=== PATIENT | male | born 1935 | race Caucasian/White ===

== ENCOUNTER → 2016-09-29 | Outpatient (CLI) | payer OTHER | LOC: RAD 13:36 | DX: J44.9 Chronic obstructive pulmonary disease, unspecified (principal) ==

== ENCOUNTER 2017-03-22 10:55 | Inpatient (IN) | payer OTHER ==
[~2017-03-22] VITALS: Ht 177.8 cm; Wt 71.0 kg
--- NOTE | ~2017-03-22 | EKG ---
[place] [address] [facility] [place] [address] ELECTROCARDIOGRAM REPORT Name: ÁNGEL BARRETO Room #: 417-I ADM IN M.R.#: [id number] Admission: 03/22/17 Attend Phys: Preston Carrillo MD Discharge: Date of : 37 Report #: [id number] THIS REPORT FOR: //name// [facility] Test Date: 2017-03-22 Test Time: 13:57:28 Pat Name: ÁNGEL BARRETO Department: Room: 417 Gender: M Process Consultant: Michelle YOU : 1935 Requested By: Preston Carrillo Order Number: [id number] MD: Andres Roberson Measurements Intervals [place] Rate: 62 P: 0 ND: 180 QRS: -66 QRSD: 140 T: 116 QT: 405 QTc: 412 Interpretive Statements Ventricular-paced rhythm No further analysis attempted due to paced rhythm Compared to ECG 02/28/2007 14:12:00 Ventricular pacing now present Electronically Signed On 03-22-2017 17:19:50 [employer] by Andres Roberson [email or web address] <ELECTRONICALLY SIGNED> By: Andres Roberson MD, [facility] 03/22/17 1719 [id number] Andres Roberson MD, FAC /EPI
--- NOTE | ~2017-03-22 | H ---
[facility] [place] [address] HISTORY AND PHYSICAL Name: ÁNGEL BARRETO Room #: 417-I [facility] IN M.R.#: [id number] Admission: 03/22/17 Attend Phys: Preston Carrillo MD Discharge: 03/26/17 Date of : 37 Report #: [id number] THIS REPORT FOR: //name// CC: VICENTE physician/PCP Preston Carrillo DATE OF SERVICE: 03/22/2017 CHIEF COMPLAINT: Shortness of breath. HISTORY OF PRESENT ILLNESS: The patient is a pleasant 81-year-old male who I have been following in the office for the last 10 years, followed by our group for more than that for underlying COPD and chronic hypoxemia, brought in today by his for reevaluation. The patient notes increasing shortness of breath over the last about 2 weeks and increasing cough productive of green sputum, recently started nebulized tobramycin, was hospitalized in [facility] in December for similar complaints. No fever or chills, but has some increasing dyspnea and wheeze. Unable to tolerate even minimal activity without significant dyspnea. No nausea, vomiting or abdominal pain noted. No other influenza type symptoms. ALLERGIES: INCLUDE MORPHINE, ASPIRIN, IBUPROFEN, NYSTATIN. PAST MEDICAL HISTORY: 1. Severe COPD. 2. Coronary artery disease. 3. Chronic hypoxemic respiratory failure. 4. Atrial fibrillation. 5. Prior cerebrovascular accident. 6. Hypertension. 7. Prior pacemaker placement. 8. Legal blindness. OUTPATIENT MEDICATIONS: Include supplemental oxygen. Tudorza twice daily, albuterol nebulized p.r.n., atorvastatin 40 mg daily, azithromycin 250 every Wednesday, Wednesday, Wednesday. Pulmicort nebulized twice daily, digoxin 0.125 daily, Lasix 40 mg daily, DuoNebs p.r.n., isosorbide mononitrate 30 mg daily, metoprolol 50 mg daily, prednisone 5 mg daily, verapamil 240 mg daily. SOCIAL HISTORY: Ex-smoker, quitting in 1977. Occasional alcohol consumption. FAMILY HISTORY: Significant for mother who had a brain aneurysm and pacemaker and at 87. Father had COPD and at 80. REVIEW OF SYSTEMS: CONSTITUTIONAL: No fevers, chills or sweats, just some general malaise. [facility] [address] [place] [address] HISTORY AND PHYSICAL Name: ÁNGEL BARRETO Room #: 417-I [facility] IN M.R.#: [id number] Admission: 03/22/17 Attend Phys: Preston Carrillo MD Discharge: 03/26/17 Date of : 37 Report #: [id number] ENT: Some difficulty hearing, upper respiratory congestion, occasional hoarseness. CARDIOVASCULAR: Known coronary artery disease, but no chest pains or palpitations. GASTROINTESTINAL: Some occasional dysphagia. No nausea, vomiting, diarrhea, constipation or abdominal pain. GENITOURINARY: No dysuria, no frequency. INTEGUMENT: Denies any new rash. MUSCULOSKELETAL: No new joint pains. Some lower extremity edema. PHYSICAL EXAMINATION: VITAL SIGNS: He is afebrile last with a temperature of 97.6, pulse 68, respiratory rate of 16, blood pressure 119/70, weight is about 153 pounds, oxygen saturation 98% on 4 liters. GENERAL: This is an elderly male, mild respiratory distress. HEENT: Clear oropharynx. Mallampati 1 airway, no thrush, no erythema. NECK: Supple, no lymphadenopathy. LUNGS: Diffuse expiratory wheezes with inspiratory basilar crackles noted. CARDIOVASCULAR: Heart is regular. No murmurs noted. ABDOMEN: Soft, nontender. No masses. No hepatosplenomegaly. EXTREMITIES: With 1+ lower extremity edema. LABORATORY DATA: All pending. IMPRESSION: 1. Acute exacerbation of chronic obstructive pulmonary disease, likely due to lower respiratory infection. 2. Possible pneumonia, may be resistant pathogen given recent hospitalizations. 3. Chronic steroid use. 4. Chronic hypoxemic respiratory failure with acute on chronic hypoxemia. 5. History of atrial fibrillation. 6. History of coronary artery disease. 7. History of prior cerebrovascular accident. 8. Do not resuscitate per family request and patient's request. SUGGESTIONS: 1. Chest x-ray. 2. Check laboratories. 3. Arterial blood gas. 4. Zosyn and azithromycin. 5. Sputum and blood cultures. 6. Nasal swab for respiratory viral panel and rapid influenza screen. 7. Check protime INR. 8. Resume home medications otherwise. 9. Chest x-ray. [address] [address] HISTORY AND PHYSICAL Name: MARY LOUÁNGEL Room #: 417-I [facility] IN M.R.#: [id number] Admission: 03/22/17 Attend Phys: Preston Carrillo MD Discharge: 03/26/17 Date of : 37 Report #: [id number] 10. EKG. 11. Additional recommendations to follow. <ELECTRONICALLY SIGNED> By: Preston Carrilol MD 04/05/17 1535 1250 [id number] Preston Carrillo MD /nt
[~2017-03-22 10:55] MED LIST: ALBUTEROL2.5 MG/31 INH; ATORVASTATIN CA40 MG PO; AZITHROMYCIN 2250 MG PO; COUMADIN 1MG TAB1 M1 PO; DIGOXIN125 MCG PO; DUONEB 2.5-0.5 M3 ML INH; IMDUR 30 MG TAB30 M1 PO; LASIX 40 MG TAB40 M2 PO; LOPRESSOR50 PO; POTASSIUM20 PO; PULMICORT0.5 MG/22 INH; TOBRAMYCIN300 MG/7.5 INH; TUDORZA PRESS400 MCG INH; VERAPAMIL E.R240 M1 PO
[2017-03-22 13:16] LABS: HEMATOCRIT 40.9 % (42.0-52.0); HEMOGLOBIN 13.5 gm/dL (14.0-18.0); MCH 30.2 pg (26.0-34.0); MCV 91.6 fL (80.0-100.0); RBC 4.47 mil/uL (4.50-6.00); RDW 13.9 % (10.5-14.5); WBC 14.8 thou/uL (4.0-11.0)
[2017-03-22 13:29] LABS: INR 2.7; PROTIME 27.4 Seconds (9.3-11.4)
[2017-03-22 13:30] LABS: ALBUMIN 3.3 g/dL (3.4-5.0); CALCIUM 9.5 mg/dL (8.5-10.1); CREATININE 1.2 mg/dL (0.7-1.3); POTASSIUM 5.2 mmol/L (3.5-5.1); TOTAL BILIRUBIN 0.9 mg/dL (<0.1-1.0); TOTAL PROTEIN 6.7 g/dL (6.4-8.2)
[2017-03-22 15:17] VITALS: BP 145/741
[2017-03-22 16:16] LABS: BE(vivo) 8.5 mmol/L (-2 to +3); HCO3 34.7 mmol/L (22.0-26.0); PCO2 54.3 mmHg (35.0-45.0); PO2 94.7 mmHg (80.0-100.0); pH 7.423 (7.360-7.450); sO2 97.2 % (92.0-98.0)
[2017-03-22 22:11] VITALS: BP 141/71
[2017-03-23 04:39] VITALS: BP 130/59
[2017-03-23 07:46] VITALS: BP 136/67
[2017-03-23 11:30] VITALS: BP 119/55
[2017-03-23] MEDS ORDERED: FLOMAX0.4 MG PO (15:03)
[2017-03-23] MEDS ORDERED: MUCINEX1200 MG PO (15:04)
[2017-03-23] MEDS ORDERED: PREDNISONE 5 MG5 M1 PO (15:04)
[2017-03-23 15:30] VITALS: BP 153/77
[2017-03-23 20:00] VITALS: BP 126/60
[2017-03-24 04:30] VITALS: BP 136/60
[2017-03-24 06:58] VITALS: BP 145/69
[2017-03-24 07:03] LABS: INR 3.2; PROTIME 32.1 Seconds (9.3-11.4)
[2017-03-24 10:26] LABS: HEMATOCRIT 39.8 % (42.0-52.0); HEMOGLOBIN 12.9 gm/dL (14.0-18.0); MCH 30.1 pg (26.0-34.0); MCHC 32.5 g/dL (28.0-37.0); MCV 92.6 fL (80.0-100.0); RBC 4.3 mil/uL (4.50-6.00); RDW 13.8 % (10.5-14.5); WBC 23.2 thou/uL (4.0-11.0)
[2017-03-24 10:29] LABS: CALCIUM 9.5 mg/dL (8.5-10.1); CREATININE 1.5 mg/dL (0.7-1.3); POTASSIUM 3.7 mmol/L (3.5-5.1)
[2017-03-24 14:50] VITALS: BP 112/97
[2017-03-24 15:09] VITALS: BP 112/97
[2017-03-24 15:13] VITALS: BP 112/97
[2017-03-24 19:25] VITALS: BP 136/64
[2017-03-25 04:19] VITALS: BP 155/82
[2017-03-25 05:12] LABS: ADENOVIRUS Negative (Negative); INFLUENZA A Negative (Negative); INFLUENZA B Negative (Negative); METAPNEUMOVIRUS Negative (Negative); PARAINFLUENZA 1 Negative (Negative); PARAINFLUENZA 2 Negative (Negative); PARAINFLUENZA 3 Negative (Negative); RHINOVIRUS Negative (Negative); RSV A Negative (Negative); RSV B Negative (Negative)
[2017-03-25 08:30] VITALS: BP 173/89
[2017-03-25 16:02] VITALS: BP 150/80
[2017-03-25 19:27] VITALS: BP 176/82
[2017-03-25 22:15] VITALS: BP 144/79
[2017-03-26 04:36] VITALS: BP 189/92
[2017-03-26 05:15] LABS: INR 3.6; PROTIME 36.4 Seconds (9.3-11.4)
[2017-03-26 07:08] VITALS: BP 162/99
[2017-03-26] MEDS ORDERED: PREDNISONE 20 M20 M1 PO (10:57)
[2017-03-26] MEDS ORDERED: AUGMENTIN 500-1 EACH PO (10:57)
[2017-03-26 12:02] VITALS: BP 112/97
[2017-03-26 12:10] VITALS: BP 112/97
== END 2017-03-26 15:04 | disposition home health service (06) | DRG 193 ==
LOC: 4E 10:55 → ENTRNSPT 03-26 14:57 → EDTRNSPTSTS 03-26 14:59 → 4E 03-26 15:04
PROVIDERS: Internal Medicine Pulmonary Disease
DX: J18.0 Bronchopneumonia, unspecified organism (principal); J96.21 Acute and chronic respiratory failure with hypoxia; J44.1 Chronic obstructive pulmonary disease with (acute) exacerbation; J44.0 Chronic obstructive pulmonary disease with (acute) lower respiratory infection; I25.10 Atherosclerotic heart disease of native coronary artery without angina pectoris; I48.91 Unspecified atrial fibrillation; I10 Essential (primary) hypertension; H54.8 Legal blindness, as defined in USA; Z66 Do not resuscitate; I49.5 Sick sinus syndrome; J20.9 Acute bronchitis, unspecified; Z88.6 Allergy status to analgesic agent; Z88.8 Allergy status to other drugs, medicaments and biological substances; Z86.73 Personal history of transient ischemic attack (TIA), and cerebral infarction without residual deficits; Z79.52 Long term (current) use of systemic steroids; Z95.0 Presence of cardiac pacemaker; Z87.891 Personal history of nicotine dependence; Z82.49 Family history of ischemic heart disease and other diseases of the circulatory system; Z82.5 Family history of asthma and other chronic lower respiratory diseases
CPT/HCPCS: 10183